=== PATIENT | male | born 1945 | race African-American/Black ===

== ENCOUNTER 2021-02-19 11:48 | Emergency (ER) | payer MEDICARE ==
[~2021-02-19] VITALS: Ht 172.7 cm; Wt 113.6 kg
[2021-02-19 13:36] LABS: BASOPHILS % (AUTO) 0.3 % (0.0-2.0); EOSINOPHILS % (AUTO) 0.1 % (1.0-6.0); HEMATOCRIT 47.4 % (41-53); HEMOGLOBIN 15.3 g/dL (13.5-17.5); LYMPHOCYTES # (AUTO) 1.2 K/uL (1.0-4.8); LYMPHOCYTES % (AUTO) 10.5 % (22.0-44.0); MEAN CORPUSCULAR HEMOGLOBIN 27.4 pg (26.0-34.0); MEAN CORPUSCULAR HGB CONC 32.3 G/dL (31.0-37.0); MEAN CORPUSCULAR VOLUME 85 fL (80-100); MONOCYTES % (AUTO) 8.6 % (2.0-9.0); NEUTROPHILS # (AUTO) 9.3 K/uL (1.8-7.7); NEUTROPHILS % (AUTO) 80.5 % (40.0-70.0); PLATELET COUNT (AUTO) 206 K/uL (150-450); RED CELL DISTRIBUTION WIDTH 15.2 % (11.5-14.5)
[2021-02-19 13:51] LABS: CALCIUM, TOTAL 9.4 mg/dL (8.8-10.5); CREATININE 1.4 mg/dL (0.60-1.30); POTASSIUM 3.7 mmol/L (3.5-5.1)
[2021-02-19 13:51] LABS: APPEARANCE,URINE CLEAR (CLEAR); BILIRUBIN,URINE NEGATIVE (NEGATIVE); GLUCOSE, URINE (UA) NEGATIVE (NEGATIVE); KETONES,URINE 15 mg/dL (NEGATIVE); LEUKOCYTE ESTERASE ,URINE NEGATIVE (NEGATIVE); NITRATE,URINE NEGATIVE (NEGATIVE); OCCULT BLOOD,URINE NEGATIVE (NEGATIVE); PH,URINE 5.5 (5.0-8.0); PROTEIN,URINE NEGATIVE (NEGATIVE); UROBILINOGEN,URINE 0.2 mg/dL (<=1.0)
[2021-02-19 13:53] LABS: BACTERIA,URINE None Seen /HPF (None Seen); RBC,URINE None Seen /HPF (0-2); WBC,URINE None Seen /HPF (0-5)
[2021-02-19 13:58] LABS: ALBUMIN 3.5 g/dL (3.4-5.0); BILIRUBIN,TOTAL 1.1 mg/dL (0.1-1.0); TOTAL PROTEIN, SERUM 8.4 g/dL (6.4-8.2)
[2021-02-19] MEDS ORDERED: BARIUM SULFATE 0.1% SUSPENSION 450 ML BOTTLE PO ONE (14:30)
[2021-02-19] MEDS ORDERED: IOHEXOL 350 MG/ML 100 ML VIAL ONE (14:50)
[2021-02-19] MEDS ORDERED: SODIUM CHLORIDE 0.9% 100 ML ONE (14:50)
[2021-02-19 20:04] VITALS: BP 169/81
[2021-02-19 21:18] LABS: PROSTATE SPECIFIC ANTIGEN 469.87 ng/mL (0.00-4.00)
== END 2021-02-19 21:02 | disposition home or self-care (01) ==
LOC: EMS 11:48
DX: R33.9 Retention of urine, unspecified (principal); N42.89 Other specified disorders of prostate
CPT/HCPCS: 36415; 51702; 74177; 80053; 81001; 83690; 84153; 84484; 85025; 99284; J7050; Q9967; 99285

== ENCOUNTER 2021-02-20 10:58 | Emergency (ER) | payer MEDICARE ==
[~2021-02-20] VITALS: Ht 172.7 cm; Wt 113.6 kg
[2021-02-20 10:59] VITALS: BP 133/72
== END 2021-02-20 12:19 | disposition home or self-care (01) ==
LOC: EMS 10:58
DX: N42.9 Disorder of prostate, unspecified (principal); R33.9 Retention of urine, unspecified
CPT/HCPCS: 51702; 99284; Z7502